=== PATIENT | female | born 1965 | race Caucasian/White ===

== ENCOUNTER 2018-05-20 11:39 | Day surgery (SDC) | END 2018-05-20 18:06 | disposition home or self-care (01) ==

== ENCOUNTER 2018-11-23 06:20 | Day surgery (SDC) | payer BC ==
[2018-11-23] VITALS (19 sets, daily range): BP systolic 103–123; BP diastolic 54–69; PULSE 52–108; RESP 16–68; Ht 162.6 cm; Wt 78.1 kg
[~2018-11-23] VITALS: Ht 162.6 cm; Wt 78.1 kg
[~2018-11-23 06:20] MED LIST: VITAMINS
[2018-11-23] MEDS ORDERED: SOD CHLORIDE 0.9% 1,000 ML IV ONE (07:00)
[2018-11-23] MEDS ORDERED: CEFAZOLIN 2 GM/50 ML (PMX) 50 ML IVPB ONE (07:00)
[2018-11-23] MEDS ORDERED: SEVOFLURANE 15 MIN ONE (07:00)
--- NOTE | 2018-11-23 08:57 | HPN ---
Date/Time of Note Date/Time of Note DATE: 11/23/18 TIME: 08:57 Interval H&P Admission Note Pt. seen H&P reviewed: No system changes KHANH BASURTO MD Nov 23, 2018 08:57
[2018-11-23] MEDS ORDERED: BUPIVACAINE 0.5%/EPI (SDV) 30 ML INJ ONE (09:06)
[2018-11-23] MEDS ORDERED: POLYMYXIN/BACITRACIN 1L IRRIG ONE (09:06)
--- NOTE | 2018-11-23 09:18 | PREAC ---
Date/Time of Note Date/Time of Note DATE: 11/23/18 TIME: 09:17 Anesthesia Eval and Record Evaluation Time Pre-Procedure Interview DATE: 11/23/18 TIME: 09:17 Age 53 Sex female NPO: 8 hrs Preoperative diagnosis umbilical Hernia Planned procedure umbilical Hernia repair Past Medical History Past Medical History: None Surgery & Anesthesia Issues No known issue Meds Anticoagulation: No Beta Giorgi within 24 hr: No Reason Beta Giorgi not given: Pt. not on B-Giorgi Discontinued Reported Medications [Vitamins] No Conflict Check 05/20/18 Current Medications Sodium Chloride 1,000 ml @ 75 mls/hr [id number] ONCE IV ; Start 11/23/18 at 07:00; Stop 11/23/18 at 20:19 Meds reviewed: Yes Allergies Coded Allergies: No Known Allergy (Unverified , 11/23/18) Allergies Reviewed: Yes Labs/Studies Labs Reviewed: Reviewed by anesthesiologist test: Negative Studies: ECG Pre-procedure Exam Last vitals Vital Signs Date Temp Pulse Resp B/P (MAP) Pulse Ox O2 O2 Flow FiO2 Time Delivery Rate 11/23/18 97.5 63 18 103/57 98 Room Air 08:43 (72) Airway: Adequate mouth opening, Adequate thyromental dist Mallampati: Mallampati II Teeth: Normal Lung: Normal Heart: Normal ASA Physical Status ASA physical status: 2 Emergency: None Planned Anesthetic General/MAC: LMA Planned Pain Management Parenteral pain med Pre-operative Attestations Prior to commencing anesthesia and surgery, the patient was re-evaluated, there was verification of: *The patient's identity *The results of appropriate recent lab work and preoperative vital signs *The above evaluation not changing prior to induction *Anesthetic plan, risk benefits, alternative and complications discussed with patient/family; questions answered; patient/family understands, accepts and wishes to proceed. DEEP MCCOLLUM MD Nov 23, 2018 09:18
[2018-11-23] MEDS ORDERED: FENTAnyl 50 MCG/ML VIAL ONE (09:27)
[2018-11-23] MEDS ORDERED: MIDAZOLAM 1 MG/ML 2 ML INJ ONE (09:27)
[2018-11-23] MEDS ORDERED: PROPOFOL 20 ML ONE (10:23)
[2018-11-23] MEDS ORDERED: LIDOCAINE 2% (SDV) 5 ML INJ ONE (10:23)
[2018-11-23] MEDS ORDERED: CEFAZOLIN 1 GM INJ ONE (10:23)
[2018-11-23] MEDS ORDERED: ROCURONIUM 50 MG INJ ONE (10:23)
[2018-11-23] MEDS ORDERED: GLYCOPYRROLATE 0.4 MG INJ ONE (10:25)
[2018-11-23] MEDS ORDERED: NEOSTIGMINE 3 MG/3 ML SYRINGE ONE (10:25)
--- NOTE | 2018-11-23 10:25 | OPR ---
Date/Time of Note Date/Time of Note DATE: 11/23/18 TIME: 10:21 Operative Report Procedure Date: Nov 23, 2018 Preoperative Diagnosis Ventral/umbilical hernia Postoperative Diagnosis Ventral/umbilical hernia Operation/Procedure Performed Open repair of ventral/umbilical hernia Surgeon see signature line Vp Project None Anesthesia Type: general Anesthesiologist: DEEP MCCOLLUM MD Estimated Blood Loss: minimal Transfusion none Specimen None Grafts/Implants none Complications none Pt Condition Post Procedure: stable Disposition: PACU Indications The patient is a 53-year-old female who presented to the office with a painful bulge of the abdominal wall involving the umbilicus. She had clinical signs and symptoms of a ventral/umbilical hernia. She was scheduled for elective repair to prevent sequelae of hernia disease which include, but are not limited to: Incarceration and strangulation. All risks and benefits of the procedure including, but not limited to: Wound infection, excessive bleeding, posto perative seroma/hematoma formation, injury to intra-abdominal organs, hernia recurrence, chronic pain, etc. were all explained to the patient in full detail. Patient fully understood and wished to proceed with the procedure. Informed consent was obtained. Procedure Description Patient was brought to the operating room and placed supine on the operating table. Bilateral sequential compression devices were placed on both lower extremities. A dose of broad-spectrum perioperative intravenous antibiotics was given. After the induction of smooth general anesthesia the patient's abdomen was prepped and draped in standard surgical fashion. After performance of the surgical timeout 0.5% Marcaine with epinephrine was injected around the area of the incision. An infraumbilical semicircular incision was then made using a 15 blade scalpel. It was carried down through the skin and the dermis. Blunt dissection was then done using Karissa clamps to the level of the anterior rectus fascia. A fat-containing umbilical/ventral hernia was identified involving the umbilicus. The umbilicus was then encircled using a Karissa clamp. The umbilicus was then transected at its base and the sac dissected off of the umbilicus. Hernia contents were reduced back into the peritoneal cavity. The hernia defect measured less than 1 cm. It was repaired primarily using a #1 PDS suture in [id number] fashion. With the repair complete it was inspected and noted to be tension-free and hemostatic. The wound cavity was then irrigated with irrigation which returned clear. The umbilicus was then tacked back down to the fascia using interrupted 3-0 Vicryl suture. Incision was then closed in layers using interrupted 3-0 Vicryl sutures for the dermal layer. The skin was reapproximated using a running 4-0 Monocryl suture in subcuticular fashion. Further local anesthesia was applied around the skin of the incision site. Incision was cleaned and Dermabond was applied. The patient was awoken from anesthesia and transported to the recovery room in stable condition. All counts were correct at the end of the case 2. KHANH BASURTO MD Nov 23, 2018 10:25
[2018-11-23] MEDS ORDERED: ONDANSETRON 4 MG INJ ONE (10:28)
[2018-11-23] MEDS ORDERED: KETOROLAC 30 MG INJ IV PRN (10:30)
[2018-11-23] MEDS ORDERED: HYDROCODONE/APAP (5/325) TAB PO PRN ×2 (10:30)
[2018-11-23] MEDS ORDERED: IBUPROFEN 600 MG TAB PO PRN (10:30)
[2018-11-23] MEDS ORDERED: ONDANSETRON 4 MG INJ IV PRN ×2 (10:30→11:00)
--- NOTE | 2018-11-23 10:43 | PAC ---
Date/Time of Note Date/Time of Note DATE: 11/23/18 TIME: 10:42 Post-Anesthesia Notes Post-Anesthesia Note Last documented vital signs Vital Signs Date Temp Pulse Resp B/P (MAP) Pulse Ox O2 O2 Flow FiO2 Time Delivery Rate 11/23/18 97.5 63 18 103/57 98 Room Air 08:43 (72) Activity: WNL Respiratory function: WNL Cardiovascular function: WNL Mental status: Baseline Pain reasonably controlled: Yes Hydration appropriate: Yes Nausea/Vomiting absent: Yes Comments BP:136/67, pulse:78, spo2:100%, T:98 DEEP MCCOLLUM MD Nov 23, 2018 10:43
[2018-11-23] MEDS ORDERED: MEPERIDINE 25 MG INJ IV PRN (11:00)
[2018-11-23] MEDS ORDERED: DIPHENHYDRAMINE 50 MG INJ IV PRN (11:00)
[2018-11-23] MEDS ORDERED: FENTAnyl 50 MCG/ML VIAL IV PRN (11:00)
[2018-11-23] MEDS ORDERED: HYDROmorphONE 1 MG/5 ML IV SYRINGE IV PRN ×2 (11:00)
[2018-11-23] MEDS ORDERED: METOCLOPRAMIDE 10 MG INJ IV PRN (11:00)
== END 2018-11-23 12:32 | disposition home or self-care (01) ==
LOC: SDS 06:20
PROVIDERS: ATTEND Surgery
DX: K42.9 Umbilical hernia without obstruction or gangrene (principal)
CPT/HCPCS: 49585; 71045; 84702; 84703; J0690; J2250; J2405; J2710; J3010; Z7512; Z7610